=== PATIENT | female | born 1960 | race Caucasian/White ===

== ENCOUNTER 2016-11-27 10:53 | Emergency (ER) | payer OTHER, MEDICARE ==
[~2016-11-27] VITALS: Ht 165.1 cm; Wt 94.3 kg
[~2016-11-27 10:53] MED LIST: ADVAIR DISKUS 21 DSK INH; ALBUTEROL0.09 MG/A1 INH; CARBAMAZEPINE100 MG PO; CARBIDOPA/LEVOD1 TA1 PO; CLOTRIMAZOLE AN1 CRE TOP; CYMBALTA60 MG PO; ENULOSE 2020 GM/30 M PO; GLIMEPIRIDE1 MG PO; INSULIN HUMA100 U/ML; K-DUR 20MEQ TA20 MEQ PO; LEVOTHYROXIN0.112 MG PO; METFORMIN1000 MG PO; NAPROXEN500 MG PO; NEURONTIN300 MG PO; PROTONIX 40MG T40 MG PO; REGLAN10 MG PO; SINGULAIR10 MG PO; SUMATRIPTAN SUC25 MG PO; TOPIRAMATE25 MG PO; ZOFRAN 4 MG TABL4 MG PO
--- NOTE | 2016-11-27 11:10 | ED GI/GU/ABDOMINAL COMPLAINT ---
History of Present Illness General Chief Complaint: Nausea, Vomiting, Diarrhea Stated Complaint: NVD Source: patient, family, old records Exam Limitations: no limitations Vital Signs & Intake/Output Vital Signs & Intake/Output Vital Signs Date Time Temp Pulse Resp B/P Pulse O2 O2 Flow FiO2 Ox Delivery Rate 11/27 1307 98.4 68 18 111/53 96 Room Air 11/27 1306 96 11/27 1100 97.3 80 20 107/70 97 Room Air Allergies Coded Allergies: adhesive (BAND-AID BRAND RASH 01/14/16) bacitracin (RASH 01/14/16) shellfish derived (HIVES, SWELLING - SEAFOOD 01/14/16) Reconcile Medications Albuterol Sulfate (Albuterol Sulfate Hfa) 0.09 MG/Actuation DEMOND 2 PUFF INH PRN ASTHMA (Reported) 90 MCG PER PUFF Carbamazepine 100 MG CTB 1 TAB PO BID SEIZURES (Reported) Carbidopa/Levodopa (Carbidopa-Levodopa 25-100 Tab) 25 MG/100 MG TAB 1 TAB PO TID PARKINSONS (Reported) CLOTRIMAZOLE/BETAMETHASONE DIP (Clotrimazole-Betamethasone Crm) 1 CRE CRE 1 DIANA TOP BID PRN INNER THIGHS/GROIN (Reported) DULOXETINE HCL (Cymbalta) 60 MG ECC 1 CAP PO DAILY MENTAL HEALTH (Reported) FLUTICASONE/SALMETEROL (Advair 250-50 Diskus) 1 DSK DSK 1 PUFF INH BID COPD ( Reported) Gabapentin (Neurontin) 300 MG CAP 1 CAP PO TID SEIZURES (Reported) Glimepiride 1 MG TAB 1 TAB PO DAILY DIABETES (Reported) Insulin Human Regular (Unknown Strength) LOLIS (Unknown Dose) UNKNOWN (Reported ) Lactulose (Enulose 20GM/30ML) (Unknown Strength) UDC (Unknown Dose) PO UNKNOWM (Reported) Levothyroxine Sodium (Levothyroxine) 0.112 MG TAB 0.112 MG PO DAILY AC THYROID (Reported) METFORMIN HCL (Metformin) 1,000 MG TAB 1 TAB PO BID DIABETES (Reported) METOCLOPRAMIDE HCL (Reglan) 10 MG TAB 1 TAB PO 4 TIMES/DAY GI (Reported) 30 minutes before meals and bedtime Montelukast Sodium (Singulair) 10 MG TAB 1 TAB PO DAILY ALLERGIES/COPD ( Reported) Naproxen 500 MG TAB 1 TAB PO BID PAIN (Reported) Ondansetron (Zofran Odt) 4 MG TAB.RAPDIS 1 TAB SL TID PRN nausea Ondansetron (Zofran 4 MG Tablet) 4 MG TAB 1 TAB PO Q6 nausea Pantoprazole Sodium (Protonix) 40 MG TAB 1 TAB PO DAILY GI (Reported) POTASSIUM CHLORIDE (K-Dur) 20 MEQ TAB 1 TAB PO DAILY SUPPLEMENT (Reported) Sumatriptan Succinate 25 MG TAB 1 TAB PO AD PRN MIGRAINES (Reported) Topiramate (Unknown Strength) TAB (Unknown Dose) PO AD UNKNOWN (Reported) Triage Note: PT BIBA FROM HOME C/O ABDOMINAL PAIN WITH N/V/D X 2 WEEKS. WAS RX ZOFRAN BY DR ABRAHAM BUT THE PAIN HAS BEEN GETTING WORSE. NO LABS DONE BY DR ABRAHAM Triage Nurses Notes Reviewed? yes ? N Is pt currently ? No Onset: Abrupt Duration: week(s): (2), constant Timing: recent history Quality/Severity: aching, cramping Severity Numbers: 6 Location: generalized abdomen Radiation: no radiation Activities at Onset: none Prior Abdominal Problems: none No Modifying Factors: none Associated Symptoms: nausea/vomiting HPI: 56-year-old female presents to emergency room complaining of a 2 week history of generalized abdominal pain nonradiating associated multiple episodes of nausea vomiting and diarrhea for the past 2 weeks. She was recently prescribed Zofran by her primary care physician which she's been taking without relief. She denies history of similar episodes in the past no chills no cough congestion urinary symptoms. No hematemesis no black or bloody stools. No sick contacts no recent travel (MOHSEN MENDEZ,MARILOU) Past History Travel History Traveled to [place] past 21 day No Medical History Any Pertinent Medical History? see below for history Neurological: Parkinson's disease EENT: NONE Cardiovascular: hypertension, hyperlipidemia Respiratory: asthma Gastrointestinal: NONE Hepatic: NONE Renal: NONE Musculoskeletal: chronic back pain, disk herniation Psychiatric: PERSONALITY DISORDER Depression Anxiety Endocrine: diabetes, hypothyroidism Blood Disorders: NONE Cancer(s): NONE SPOUT TENDER/Reproductive: NONE History of MRSA: No History of VRE: No History of CDIFF: No Pneumonia Vaccine: 09/09/15 Influenza Vaccine: 09/09/15 Surgical History Surgical History: non-contributory Psychosocial History Who do you live with Patient/Self What is your primary language Venezuelan Tobacco Use: Never used ETOH Use: denies use Illicit Drug Use: denies illicit drug use Family History Hx Contributory? No (MARILOU CHAUHAN) Review of Systems Review of Systems Constitutional: Reports: see HPI. All Other Systems: Reviewed and Negative Comments Review of systems: See HPI, All other systems negative. Constitutional, no chills no fever, no malaise HEENT: No visual changes no sore throat no congestion Cardiovascular: No chest pain , no palpitation Skin, no rashes, no change in skin Respiratory: No dyspnea no cough no sputum GI: nausea vomiting, diarrhea, : No dysuria No hematuria, no frequency Muscle skeletal: No joint pain, no back pain, no neck pain, Neurologic: No numbness no headache Psych: No stress Heme/endocrine: No bruising no bleeding Immunology: No lymphadenopathy (MARILOU CHAUHAN) Physical Exam Physical Exam General Appearance: well developed/nourished, no apparent distress, alert, awake Gastrointestinal: normal bowel sounds, soft, non-tender Comments: Well-developed well-nourished person in no acute distress HEENT: Normal EENT exam; PERRL, EOMI. HEAD is atraumatic. moist mucous membranes. Neck: Supple,no lymphadenopathy, normal range of motion Back: Nontender, no CVA tenderness. Full range of motion Cardiovascular: Regular rate and rhythms no murmurs rubs Respiratory: No respiratory distress. Patient speaking in full complete sentences. Breath sounds clear to auscultation bilaterally: NO W/R/R Abdomen: Soft, nontender nondistended, no appreciable organomegaly. Normal bowel sounds. No rebound/guarding, No appreciable enlargement of the abdominal aorta, No ascites. Extremity: No edema, full range of motion of extremities, Neuro: Alert oriented x3, motor sensory normal. There were no obvious focal neurologic abnormalities. Skin: No appreciable rash on exposed skin, skin is warm and dry. Psych: Mood and affect is normal, memory and judgment is normal. Core Measures ACS in differential dx? No Severe Sepsis Present: No Septic Shock Present: No (MARILOU CHAUHAN) Progress Differential Diagnosis: appendicitis, biliary colic, bowel obstruction, colon cancer, diverticulitis, endometritis, esophageal varices, gastritis, hepatitis, hernia, hemorrhoids, ischemic bowel, inflamm bowel dis, kidney stone, [place]- Pietro tear, ovarian cyst, ovarian torsion, pancreatitis, PID/cervicitis, peptic ulcer, PUD/GERD, perforated viscous, SBO, UTI/pyelo Plan of Care: Orders Procedure Date/time Status FingerStick- Glucose 11/27 1220 Active Saline Lock 11/27 1119 Active LIPASE 11/27 1119 Complete COMPREHENSIVE METABOLIC PANEL 11/27 1119 Complete CBC WITHOUT DIFFERENTIAL 11/27 1119 Complete AMYLASE 11/27 1119 Complete URINALYSIS 11/27 1102 Complete Laboratory Tests 11/27/16 1230: CBC w Diff NO MAN DIFF REQ, RBC 3.82 L, MCV 94.6, MCH 32.1 H, RDW 13.6, MPV 7.3 L, Gran % 81.4 H, Lymphocytes % 12.1 L, Monocytes % 5.6, Eosinophils % 0.8, Basophils % 0.1, Absolute Granulocytes 6.2, Absolute Lymphocytes 0.9 L, Absolute Monocytes 0.4, Absolute Eosinophils 0.1, Absolute Basophils 0, PUBS MCHC 33.9 11/27/16 1142: Anion Gap 19 H, Estimated GFR 36 L, BUN/Creatinine Ratio 10.7, Glucose 260 H, Calcium 9.6, Total Bilirubin 0.7, AST 14, ALT 12, Alkaline Phosphatase 134 H, Total Protein 7.8, Albumin 4.5, Globulin 3.3, Albumin/Globulin Ratio 1.4, Amylase 35, Lipase 67, Urine Color YEL, Urine Clarity CLEAR, Urine pH 6.0, Ur Specific Union 1.020, Urine Protein 30 H, Urine Ketones 15 H, Urine Nitrite NEG, Urine Bilirubin NEG@ICTO, Urine Urobilinogen 0.2, Ur Leukocyte Esterase NEG , Ur Microscopic SEDIMENT EXAMINED, Urine RBC 1-3, Urine WBC 5-10 H, Ur Epithelial Cells OCCAS, Hyaline Casts RARE H, Granular Casts 1-3 H, Urine Hemoglobin NEG, Urine Glucose >=1000 H LABS ORDERED, PT MEDICATED WITH ZOFRAN 4MG IV, IVNS, CT ORDERED. CASE D/W DR GONG On repeat evaluation patient is tolerating by mouth I discussed with her family at all for lab results CAT scan findings. Discussed apparently thought the incidental findings on CAT scan and lab results. Need for bland diet clear liquids follow-up with her primary care physician this week advised return anytime sooner with any concerns (MOHSEN MENDEZ,MARILOU) Diagnostic Imaging: Viewed by Me: CT Scan. Discussed w/RAD: CT Scan. Radiology Impression: PATIENT: ALPA DODD PRESENT AGE : 56 PATIENT ACCOUNT NO: [id number] : 58 LOCATION: [facility] ORDERING PHYSICIAN: MARILOU MENDEZ SERVICE DATE: 11/27/16 EXAM TYPE: CAT - CT ABD & PELVIS W/O IV CONTRAS EXAMINATION: CT ABDOMEN AND PELVIS WITHOUT CONTRAST CLINICAL INFORMATION: Diverticulitis. COMPARISON: None. TECHNIQUE: Multidetector volumetric imaging was performed from the superior aspect of the liver through the pubic symphysis. Sagittal and coronal reformatted images were obtained on the technologist's workstation. DLP: 653 mGy-cm. FINDINGS: LUNG BASES: The visualized lung bases are unremarkable. LIVER, GALLBLADDER, AND BILIARY TREE: The liver is normal in size, shape, and attenuation. No focal hepatic lesion or biliary ductal dilatation is present. Status post cholecystectomy. PANCREAS: Unremarkable. SPLEEN: Unremarkable. ADRENAL GLANDS: Unremarkable. KIDNEYS AND URETERS: The kidneys are normal in size, shape, and attenuation. No hydronephrosis, hydroureter, or calculi seen. No perinephric stranding. BLADDER: Unremarkable. GASTROINTESTINAL TRACT: Scattered diverticula but no evidence for diverticulitis. Appendix not visualized. However, no inflammatory changes in the right lower quadrant. The small bowel and stomach are normal. ABDOMINAL WALL: Tiny 5 mm fat-containing umbilical hernia. LYMPH NODES: Normal. VASCULAR: Mild arterial calcification throughout. PELVIC VISCERA: Unremarkable. OSSEOUS STRUCTURES: Postop changes related to lumbar fusion at L5-S1 with bilateral pedicle screws and interconnecting rods posteriorly and interbody bone graft in the disc space. Prominent degenerative disc change at T11-T12. IMPRESSION: No acute abnormality. Scattered diverticula but no evidence for diverticulitis. Incidental findings including tiny fat-containing umbilical hernia, mild calcific atherosclerotic disease, and postop changes of the lumbosacral spine with degenerative disc changes at T11-T12. Status post cholecystectomy. DICTATED BY: SHELTON REDMOND MD DATE/TIME DICTATED:11/27/161216 DRY HOUSE TENDER: DALLIN DATE/TIME TRANSCRIBED:11/27/161216 CONFIDENTIAL, DO NOT COPY WITHOUT APPROPRIATE AUTHORIZATION. <Electronically signed in Other Vendor System> SIGNED BY: SHELTON REDMOND MD 11/27/16 1232 Initial ED EKG: none (MARILOU CHAUHAN) Departure Departure Time of Disposition: 1252 Disposition: HOME OR SELF CARE Condition: Stable Clinical Impression Primary Impression: Nausea vomiting and diarrhea Secondary Impressions: Abdominal pain Referrals: MORGAN MIKE,KARIS Koroma (PCP/Family) Additional Instructions: Follow-up with your primary care physician tomorrow for follow-up evaluation early next week. Zofran for nausea. Use [id number] Imodium as needed for diarrhea. This prescription was sent to your pharmacy return anytime sooner with any concerns bland diet, clear liquids advance as tolerated Departure Forms: Customer Survey General Discharge Information Prescriptions: Current Visit Scripts Ondansetron (Zofran Odt) 1 TAB SL TID PRN nausea #10 TAB (MARILOU CHAUHAN) PA/VIBRATION TECHNICIAN Co-Sign Statement Statement: ED Attending supervision documentation- [] I saw and evaluated the patient. I have also reviewed all the pertinent lab results and diagnostic results. I agree with the findings and the plan of care as documented in the PA's/VIBRATION TECHNICIAN's documentation. [X] I have reviewed the ED Record and agree with the PA's/VIBRATION TECHNICIAN's documentation. [] Additions or exceptions (if any) to the PAs/VIBRATION TECHNICIAN's note and plan are summarized below: [] (FARIDEH MIKE,IESHA Scott) ED Attending Observation Initial Observation Note: I have seen and personally examined ALPA DODD on 11/27/16 at 1147. I agree with the current emergency department documentation. The disposition (admission or discharge) is uncertain at this time, she needs a period of observation for the following reason(s): The ED Nurse caring for this patient has been personally informed as to what the patient is being observed for. (MARILOU CHAUHAN)
--- NOTE | 2016-11-27 12:32 | CT SCAN REPORT ---
EXAMINATION: CT ABDOMEN AND PELVIS WITHOUT CONTRAST CLINICAL INFORMATION: Diverticulitis. COMPARISON: None. TECHNIQUE: Multidetector volumetric imaging was performed from the superior aspect of the liver through the pubic symphysis. Sagittal and coronal reformatted images were obtained on the technologist's workstation. DLP: 653 mGy-cm. FINDINGS: LUNG BASES: The visualized lung bases are unremarkable. LIVER, GALLBLADDER, AND BILIARY TREE: The liver is normal in size, shape, and attenuation. No focal hepatic lesion or biliary ductal dilatation is present. Status post cholecystectomy. PANCREAS: Unremarkable. SPLEEN: Unremarkable. ADRENAL GLANDS: Unremarkable. KIDNEYS AND URETERS: The kidneys are normal in size, shape, and attenuation. No hydronephrosis, hydroureter, or calculi seen. No perinephric stranding. BLADDER: Unremarkable. GASTROINTESTINAL TRACT: Scattered diverticula but no evidence for diverticulitis. Appendix not visualized. However, no inflammatory changes in the right lower quadrant. The small bowel and stomach are normal. ABDOMINAL WALL: Tiny 5 mm fat-containing umbilical hernia. LYMPH NODES: Normal. VASCULAR: Mild arterial calcification throughout. PELVIC VISCERA: Unremarkable. OSSEOUS STRUCTURES: Postop changes related to lumbar fusion at L5-S1 with bilateral pedicle screws and interconnecting rods posteriorly and interbody bone graft in the disc space. Prominent degenerative disc change at T11-T12. IMPRESSION: No acute abnormality. Scattered diverticula but no evidence for diverticulitis. Incidental findings including tiny fat-containing umbilical hernia, mild calcific atherosclerotic disease, and postop changes of the lumbosacral spine with degenerative disc changes at T11-T12. Status post cholecystectomy.
[2016-11-27 12:37] LABS: ABSOLUTE BASOPHIL COUNT 0 /CUMM (0.0-0.2); ABSOLUTE EOSINOPHIL COUNT 0.1 /CUMM (0.0-0.7); ABSOLUTE GRANULOCYTE CT 6.2 /CUMM (1.4-6.5); ABSOLUTE LYMPH COUNT 0.9 /CUMM (1.2-3.4); ABSOLUTE MONOCYTE COUNT 0.4 /CUMM (0.10-0.60); BASOPHIL % 0.1 % (0.0-2.0); EOSINOPHIL % 0.8 % (0-5); GRANULOCYTE % 81.4 % (42.2-75.2); HEMATOCRIT 36.1 % (37-47); MEAN CORPUSCULAR HGB 32.1 PG (27.0-31.0); MEAN CORPUSCULAR HGB CONC 33.9 G/DL (33.0-37.0); MEAN CORPUSCULAR VOLUME 94.6 FL (81.0-99.0); MEAN PLATELET VOLUME 7.3 FL (7.4-10.4); PLATELET COUNT 218 /CUMM (130-400); RBC DISTRIBUTION WIDTH 13.6 % (11.5-14.5); RED BLOOD CELL CT 3.82 /CUMM (4.20-5.40); WHITE BLOOD CELL COUNT 7.6 /CUMM (4.8-10.8)
[2016-11-27] MEDS ORDERED: ZOFRAN ODT4 M1 SL (12:53)
[2016-11-27 13:07] VITALS: BP 111/53
== END 2016-11-27 13:08 ==
LOC: ERH 10:53
PROVIDERS: Physician Assistant Medical
DX: R11.2 Nausea with vomiting, unspecified (principal); R19.7 Diarrhea, unspecified; R10.84 Generalized abdominal pain
CPT/HCPCS: 74176; 81001; 96374; J2405

== ENCOUNTER 2016-11-29 18:33 | Emergency (ER) | payer OTHER, MEDICARE ==
[~2016-11-29] VITALS: Ht 182.9 cm; Wt 94.3 kg
[~2016-11-29 18:33] MED LIST changes: +ZOFRAN ODT4 M1 SL
--- NOTE | 2016-11-29 18:54 | ED GI/GU/ABDOMINAL COMPLAINT ---
History of Present Illness General Chief Complaint: Abdominal Pain/Flank Pain Stated Complaint: BIBA FOR N/V SEEN HERE THURSDAY Source: patient, old records Exam Limitations: no limitations Allergies Coded Allergies: adhesive (BAND-AID BRAND RASH 01/14/16) bacitracin (RASH 01/14/16) shellfish derived (HIVES, SWELLING - SEAFOOD 01/14/16) Reconcile Medications Albuterol Sulfate (Albuterol Sulfate Hfa) 0.09 MG/Actuation DEMOND 2 PUFF INH PRN ASTHMA (Reported) 90 MCG PER PUFF Carbamazepine 100 MG CTB 1 TAB PO BID SEIZURES (Reported) Carbidopa/Levodopa (Carbidopa-Levodopa 25-100 Tab) 25 MG/100 MG TAB 1 TAB PO TID PARKINSONS (Reported) CLOTRIMAZOLE/BETAMETHASONE DIP (Clotrimazole-Betamethasone Crm) 1 CRE CRE 1 DIANA TOP BID PRN INNER THIGHS/GROIN (Reported) DULOXETINE HCL (Cymbalta) 60 MG ECC 1 CAP PO DAILY MENTAL HEALTH (Reported) FLUTICASONE/SALMETEROL (Advair 250-50 Diskus) 1 DSK DSK 1 PUFF INH BID COPD ( Reported) Gabapentin (Neurontin) 300 MG CAP 1 CAP PO TID SEIZURES (Reported) Glimepiride 1 MG TAB 1 TAB PO DAILY DIABETES (Reported) Insulin Human Regular (Unknown Strength) LOLIS (Unknown Dose) UNKNOWN (Reported ) Lactulose (Enulose 20GM/30ML) (Unknown Strength) UDC (Unknown Dose) PO UNKNOWM (Reported) Levothyroxine Sodium (Levothyroxine) 0.112 MG TAB 0.112 MG PO DAILY AC THYROID (Reported) METFORMIN HCL (Metformin) 1,000 MG TAB 1 TAB PO BID DIABETES (Reported) METOCLOPRAMIDE HCL (Reglan) 10 MG TAB 1 TAB PO 4 TIMES/DAY GI (Reported) 30 minutes before meals and bedtime Metoclopramide HCl (Reglan) 10 MG TABLET 1 TAB PO TID PRN NAUSEA 30 minutes before meals and bedtime Montelukast Sodium (Singulair) 10 MG TAB 1 TAB PO DAILY ALLERGIES/COPD ( Reported) Naproxen 500 MG TAB 1 TAB PO BID PAIN (Reported) Ondansetron (Zofran Odt) 4 MG TAB.RAPDIS 1 TAB SL TID PRN nausea Ondansetron (Zofran 4 MG Tablet) 4 MG TAB 1 TAB PO Q6 nausea Pantoprazole Sodium (Protonix) 40 MG TAB 1 TAB PO DAILY GI (Reported) POTASSIUM CHLORIDE (K-Dur) 20 MEQ TAB 1 TAB PO DAILY SUPPLEMENT (Reported) Sumatriptan Succinate 25 MG TAB 1 TAB PO AD PRN MIGRAINES (Reported) Topiramate (Unknown Strength) TAB (Unknown Dose) PO AD UNKNOWN (Reported) Triage Note: PT BIBA FROM HOME. PT C/O N/V FOR APPROXIMATELY 3 DAYS. PT SEEN AT THIS HOSITAL APPROXIMATELY 3 DAYS AGO FOR SIMILAR COMPLAINT. PT STATED SHE HAD NO PO INTAKE FOR TWO DAYS. VANESSA CONNOLLY AT BEDSIDE FOR EVAL Triage Nurses Notes Reviewed? yes ? n Is pt currently ? No Onset: Abrupt Duration: week(s): (2), waxing and waning Timing: recent history Quality/Severity: aching, cramping Severity Numbers: 5 Location: generalized abdomen Radiation: no radiation Activities at Onset: none Prior Abdominal Problems: denies No Modifying Factors: none Associated Symptoms: denies HPI: 56-year-old female presents emergency for evaluation complaining of persistent nausea and vomiting. She was seen here 2 days ago for the same by myself had an unremarkable workup at that time. She states the diarrhea has resolved however her nausea and vomiting persist. She denies any black or bloody stools no hematemesis no fever no chills no chest pain no shortness of breath (MOHSEN MENDEZ,MARILOU) Vital Signs & Intake/Output Vital Signs & Intake/Output Vital Signs Date Time Temp Pulse Resp B/P Pulse O2 O2 Flow FiO2 Ox Delivery Rate 11/29 2046 97.9 61 20 144/63 99 Room Air 11/29 1852 97.7 70 20 139/65 97 Room Air Past History Travel History Traveled to [place] past 21 day No Medical History Any Pertinent Medical History? see below for history Neurological: Parkinson's disease EENT: NONE Cardiovascular: hypertension, hyperlipidemia Respiratory: asthma Gastrointestinal: NONE Hepatic: NONE Renal: NONE Musculoskeletal: chronic back pain, disk herniation Psychiatric: PERSONALITY DISORDER Depression Anxiety Endocrine: diabetes, hypothyroidism Blood Disorders: NONE Cancer(s): NONE MUSIC PROFESSIONALS/Reproductive: NONE History of MRSA: No History of VRE: No History of CDIFF: No Surgical History Surgical History: non-contributory Psychosocial History Who do you live with Patient/Self What is your primary language Occitan Tobacco Use: Never used ETOH Use: denies use Illicit Drug Use: denies illicit drug use Family History Hx Contributory? No (MARILOU CHAUHAN) Review of Systems Review of Systems Constitutional: Reports: see HPI. All Other Systems: Reviewed and Negative Comments Review of systems: See HPI, All other systems negative. Constitutional, no chills no fever, no malaise HEENT: No visual changes no sore throat no congestion, no ear pain Cardiovascular: No chest pain , no palpitation Skin, no rashes, no change in skin Respiratory: No dyspnea no cough no sputum GI: nausea vomiting, diarrhea, no bloating/constipation : No dysuria No hematuria, no frequency, no discharge Muscle skeletal: No joint pain, no joint swelling, no back pain Neurologic: No numbness n no headache Psych: No stress Heme/endocrine: No bruising no bleeding Immunology: No lymphadenopathy (MARILOU CHAUHAN) Physical Exam Physical Exam General Appearance: well developed/nourished, alert, awake, comfortable Gastrointestinal: normal bowel sounds, soft, non-tender Comments: Well-developed well-nourished person in no acute distress HEENT: Normal EENT exam; PERRL, EOMI, HEAD is atraumatic. moist mucous membranes. Neck: Supple, no lymphadenopathy, normal range of motion Back: Nontender, no CVA tenderness. Full range of motion Cardiovascular: Regular rate and rhythms no murmurs rubs Respiratory: Chest nontender.There were no bony deformities, no asymmetry. No respiratory distress. Patient speaking in full complete sentences. Breath sounds clear to auscultation bilaterally: NO W/R/R Abdomen: Soft, nontender nondistended, no appreciable organomegaly. Normal bowel sounds. No rebound/guarding, No appreciable enlargement of the abdominal aorta, No ascites. Extremity: No edema, full range of motion of extremities Neuro: Alert oriented x3, motor sensory normal, There were no obvious focal neurologic abnormalities. Skin: No appreciable rash on exposed skin, skin is warm and dry. Psych: Mood and affect is normal, memory and judgment is normal. Core Measures ACS in differential dx? No Severe Sepsis Present: No Septic Shock Present: No (MARILOU CHAUHAN) Progress Differential Diagnosis: AAA, appendicitis, biliary colic, bowel obstruction, colon cancer, cholecystitis, diverticulitis, endometritis, esophageal varices, gastritis, hepatitis, hernia, ischemic bowel, inflamm bowel dis, kidney stone, [place]-Pietro tear, ovarian cyst, ovarian torsion, pancreatitis, PID/cervicitis, peptic ulcer, PUD/GERD, perforated viscous, SBO, UTI/pyelo, GASTROPARESIS, DKA, HHS Initial ED EKG: none (MOHSEN MENDEZ,MARILOU) Plan of Care: Orders Procedure Date/time Status Saline Lock 11/29 1842 Active SERUM OSMOLALITY 11/29 1842 Complete LIPASE 11/29 1842 Complete LACTIC ACID 11/29 1842 Complete COMPREHENSIVE METABOLIC PANEL 11/29 1842 Complete CBC WITHOUT DIFFERENTIAL 11/29 1842 Complete AMYLASE 11/29 1842 Complete ACETONE 11/29 1842 Complete Current Medications Sig/Kelly Start time Last Medication Dose Stop Time Status Admin Sodium Chloride 1,000 ML BOLUS ONE 11/29 2014 CAN (Normal Saline 0.9%) 11/29 2113 Laboratory Tests 11/29/16 2143: Lactic Acid Cancelled 11/29/16 1937: Anion Gap 12, Estimated GFR 57 L, BUN/Creatinine Ratio 12.0, Glucose 279 H, Serum Osmolality 301 H, Lactic Acid 3.0 H, Calcium 9.2, Total Bilirubin 0.5, AST 17, ALT 10, Alkaline Phosphatase 105, Total Protein 6.6, Albumin 3.7, Globulin 2.9, Albumin/Globulin Ratio 1.3, Amylase 33, Lipase 72, CBC w Diff NO MAN DIFF REQ, RBC 3.88 L, MCV 94.4, MCH 31.8 H, RDW 13.6, MPV 7.2 L, Gran % 65.5, Lymphocytes % 23.8, Monocytes % 7.0, Eosinophils % 3.2, Basophils % 0.5, Absolute Granulocytes 5.0, Absolute Lymphocytes 1.8, Absolute Monocytes 0.5, Absolute Eosinophils 0.2, Absolute Basophils 0, PUBS MCHC 33.6, Acetone Level NEGATIVE Patient clinically appears well patient had an extensive workup including labs and CAT scan 2 days ago. IV fluids ordered case discussed with Dr. Rocha 11/29/2016 8:08:37 PM patient has had no episodes of vomiting here in the department clinically appears well this time Case and labs were discussed with Dr. Rocha who evaluated the pt. the patient tolerating by mouth challenge she's had no episodes of vomiting here in the department. Discussed that all her lab results need for close follow-up with GI as well as her primary care physician prescription for Reglan was provided. I answered all her questions she feels comfortable this plan (MARILOU CHAUHAN) Departure Departure Time of Disposition: 2023 Disposition: HOME OR SELF CARE Condition: Stable Clinical Impression Primary Impression: Nausea & vomiting Referrals: MISAEL MIKE,SONNY MORA MD,KARIS Koroma (PCP/Family) Additional Instructions: Follow-up with [facility] neurologist Dr. robledo as well as your primary care physician on Thursday. Reglan as directed for nausea. [place] diet clear liquids Departure Forms: Customer Survey General Discharge Information Prescriptions: Current Visit Scripts Metoclopramide HCl (Reglan) 1 TAB PO TID PRN NAUSEA #10 TAB 30 minutes before meals and bedtime (MARILOU CHAUHAN) PA/STRUCTURAL STEEL SHOP SUPERVISOR Co-Sign Statement Statement: ED Attending supervision documentation- [X] I saw and evaluated the patient. I have also reviewed all the pertinent lab results and diagnostic results. I agree with the findings and the plan of care as documented in the PA's/STRUCTURAL STEEL SHOP SUPERVISOR's documentation. [] I have reviewed the ED Record and agree with the PA's/STRUCTURAL STEEL SHOP SUPERVISOR's documentation. [] Additions or exceptions (if any) to the PAs/STRUCTURAL STEEL SHOP SUPERVISOR's note and plan are summarized below: [] (LORENZO MIKE,DIAZ Browning)
[2016-11-29 19:48] LABS: ABSOLUTE BASOPHIL COUNT 0 /CUMM (0.0-0.2); ABSOLUTE EOSINOPHIL COUNT 0.2 /CUMM (0.0-0.7); ABSOLUTE LYMPH COUNT 1.8 /CUMM (1.2-3.4); ABSOLUTE MONOCYTE COUNT 0.5 /CUMM (0.10-0.60); BASOPHIL % 0.5 % (0.0-2.0); EOSINOPHIL % 3.2 % (0-5); GRANULOCYTE % 65.5 % (42.2-75.2); HEMATOCRIT 36.6 % (37-47); MEAN CORPUSCULAR HGB 31.8 PG (27.0-31.0); MEAN CORPUSCULAR HGB CONC 33.6 G/DL (33.0-37.0); MEAN CORPUSCULAR VOLUME 94.4 FL (81.0-99.0); MEAN PLATELET VOLUME 7.2 FL (7.4-10.4); PLATELET COUNT 232 /CUMM (130-400); RBC DISTRIBUTION WIDTH 13.6 % (11.5-14.5); RED BLOOD CELL CT 3.88 /CUMM (4.20-5.40); WHITE BLOOD CELL COUNT 7.6 /CUMM (4.8-10.8)
[2016-11-29] MEDS ORDERED: REGLAN10 M1 PO (20:26)
[2016-11-29 20:47] VITALS: BP 144/63
== END 2016-11-29 20:54 ==
LOC: ERH 18:33
PROVIDERS: Physician Assistant Medical
DX: R11.2 Nausea with vomiting, unspecified (principal)
CPT/HCPCS: 96374; J2405

== ENCOUNTER 2017-05-20 12:29 | Emergency (ER) | payer OTHER, MEDICARE ==
[~2017-05-20] VITALS: Ht 152.4 cm; Wt 102.1 kg
[~2017-05-20 12:29] MED LIST changes: +ADVAIR 250-501 EACH INH; -ADVAIR DISKUS 21 DSK INH; -ALBUTEROL0.09 MG/A1 INH; +CARBAMAZEPINE100 M2 PO; -CARBAMAZEPINE100 MG PO; +CARBIDOPA-LEVO1 EAC7 PO; -CARBIDOPA/LEVOD1 TA1 PO; -GLIMEPIRIDE1 MG PO; +GLIMEPIRIDE2 MG PO; -K-DUR 20MEQ TA20 MEQ PO; +K-TAB ER20 MEQ PO; -LEVOTHYROXIN0.112 MG PO; +LEVOTHYROXINE112 MCG PO; +METFORMIN HCL1000 M1 PO; -METFORMIN1000 MG PO; +NEURONTIN300 M1 PO; -NEURONTIN300 MG PO; +PROAIR HFA8.5 GM INH; +REGLAN10 M1 PO; +SINGULAIR10 M1 PO; -SINGULAIR10 MG PO; +SUMATRIPTAN SUC25 M1 PO; -SUMATRIPTAN SUC25 MG PO; +TOPAMAX25 M3 PO; -TOPIRAMATE25 MG PO
[2017-05-20 12:37] VITALS: BP 120/77
--- NOTE | 2017-05-20 13:09 | ED MVC/FALL/TRAUMA COMPLAINT ---
History of Present Illness General Chief Complaint: Fall Stated Complaint: BIBA FALL +HIT HEAD,-LOC Source: patient Exam Limitations: no limitations Vital Signs & Intake/Output Vital Signs & Intake/Output Vital Signs Date Time Temp Pulse Resp B/P B/P Pulse O2 O2 Flow FiO2 Mean Ox Delivery Rate 05/20 1237 98.4 94 18 120/77 98 Room Air Allergies Coded Allergies: adhesive (BAND-AID BRAND RASH 01/14/16) bacitracin (RASH 01/14/16) shellfish derived (HIVES, SWELLING - SEAFOOD 01/14/16) Reconcile Medications Albuterol Sulfate (Proair Hfa) 90 MCG HFA.AER.AD 2 PUF INH Q4-6 PRN PRN SHORTNESS OF BREATH (Reported) Aripiprazole (Abilify) 15 MG TABLET 1 TAB PO DAILY MENTAL HEALTH (Reported) Aripiprazole 2 MG TABLET 1 TAB PO DAILY MENTAL HEALTH (Reported) Atorvastatin Calcium 20 MG TABLET 1 TAB PO DAILY CHOLESTEROL (Reported) Carbamazepine 100 MG TAB.CHEW 1 TAB PO BID SEIZURES (Reported) Carbidopa/Levodopa (Carbidopa-Levodopa 25-100 Tab) 25 MG-100 MG TABLET 1 TAB PO TID PARKINSONS (Reported) Duloxetine HCl 60 MG CAPSULE.DR 1 CAP PO DAILY MENTAL HEALTH (Reported) Empagliflozin (Jardiance) 25 MG TABLET 1 TAB PO DAILY DIABETES (Reported) Fluticasone/Salmeterol (Advair 250-50 Diskus) 250 MCG-50 MCG/DOSE BLST.W.DEV 1 PUF INH BID COPD (Reported) Gabapentin (Neurontin) 300 MG CAPSULE 1 CAP PO TID SEIZURES (Reported) Glimepiride 2 MG TABLET 1 TAB PO DAILY DIABETES (Reported) Insulin Glargine,Hum.rec.anlog (Lantus Solostar) 100 UNIT/ML (3 ML) INSULN.PEN 40 UNIT SC QPM DIABETES (Reported) Levothyroxine Sodium 112 MCG TABLET 1 TAB PO DAILY AC THYROID (Reported) Metformin HCl 1,000 MG TABLET 1 TAB PO BID DIABETES (Reported) Metoclopramide HCl (Reglan) 10 MG TABLET 1 TAB PO TID PRN NAUSEA 30 minutes before meals and bedtime Mirtazapine 15 MG TABLET 1 TAB PO QPM SLEEP (Reported) Montelukast Sodium (Singulair) 10 MG TABLET 1 TAB PO DAILY ALLERGIES ( Reported) Ondansetron (Zofran Odt) 4 MG TAB.RAPDIS 1 TAB SL TID PRN nausea Oxycodone HCl/Acetaminophen (Percocet 5-325 MG Tablet) 5 MG-325 MG TABLET 1 TAB PO BID PRN PAIN Potassium Chloride (K-Tab ER) 20 MEQ TABLET.ER 1 TAB PO DAILY SUPPLEMENT ( Reported) Solifenacin Succinate (Vesicare) 5 MG TABLET 1 TAB PO DAILY BLADDER (Reported ) Sumatriptan Succinate 25 MG TABLET 1 TAB PO DAILY PRN HEADACHE (Reported) Topiramate (Topamax) 25 MG TABLET 1 TAB PO TID MENTAL HEALTH (Reported) Triage Note: 57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 PT STATES SHE TRIPPED ON THE CURB AND FELL. +HEADSTRIKE, NOTED WITH HEMATOMA ABOVE R EYE, ABRASION TO R KNEE, BLEEDING CONTROLLED. STATES PAIN TO R ELBOW. PT A&O X3. DENIES TAKING BLOOD THINNERS. PER EMS, PTS BLOOD GLUCOSE 448. Triage Nurses Notes Reviewed? yes Onset: Abrupt Duration: constant Timing: single episode today Severity: severe Severity Numbers: 10 Method of Injury: direct blow, fall HPI: Patient is a 57-year-old female with past medical history Parkinson's who presents emergency room stating that she was in her normal state of health today patient was ambulating outside tripped on her feet where she subsequently fell forward striking the right lateral aspect of her head to the pavement as well as the right upper extremity and right knee. Patient suffered a skin abrasion to the right knee. Denies any loss of consciousness. Denies any preceding episode of lightheaded sensation or dizziness. Patient was unable to get up where she was brought in by ambulance. Denies any neck or back pain abdominal pain shortness of breath and hip pain or ankle pain. Patient is right-hand dominant. Tetanus is unknown. (MEGHA MENDEZ,MARILOU) Past History Travel History Traveled to [place] past 21 day No Medical History Any Pertinent Medical History? see below for history Neurological: Parkinson's disease EENT: NONE Cardiovascular: hypertension, hyperlipidemia Respiratory: asthma Gastrointestinal: NONE Hepatic: NONE Renal: NONE Musculoskeletal: chronic back pain, disk herniation Psychiatric: PERSONALITY DISORDER Depression Anxiety Endocrine: diabetes, hypothyroidism Blood Disorders: NONE Cancer(s): NONE STRUCTURAL ARCHITECT/Reproductive: NONE History of MRSA: No History of VRE: No History of CDIFF: No Surgical History Surgical History: non-contributory Psychosocial History Who do you live with Patient/Self What is your primary language Montserratian Tobacco Use: Never used Family History Hx Contributory? No (MARILOU GUARDADO) Review of Systems Review of Systems Constitutional: Reports: no symptoms. Eyes: Reports: no symptoms. Ears, Nose, Throat, Mouth: Reports: no symptoms. Respiratory: Reports: no symptoms. Cardiovascular: Reports: no symptoms. Gastrointestinal/Abdominal: Reports: no symptoms. Genitourinary: Reports: no symptoms. Musculoskeletal: Reports: see HPI, joint pain. Skin: Reports: see HPI. Neurological/Psychological: Reports: no symptoms. All Other Systems: Reviewed and Negative (MARILOU GUARDADO) Physical Exam Physical Exam General Appearance: no apparent distress, alert, anxious Comments: Well-developed well-nourished person in no acute distress HEENT: Normal EENT exam, extraocular motion intact, no nystagmus. Pupils equally round and reactive to light and accommodation. Nose is atraumatic. External auditory canal and Tympanic membranes clear. Pharynx normal. No swelling or edema. Neck: Supple, no lymphadenopathy, normal range of motion without pain or tenderness No central spinous tenderness Back: Nontender, no CVA tenderness. No central spinous tenderness Cardiovascular: Regular rate and rhythms no murmurs rubs or gallops, normal JVP Respiratory: Chest nontender. No respiratory distress.breath sounds clear to auscultation bilaterally Abdomen: Soft, nontender nondistended, no appreciable organomegaly. Normal bowel sounds. No ascites Extremity: No edema, no calf tenderness to palpation, normal and equal pulses. Right shoulder normal inspection nontender full active range of motion Right elbow normal inspection decreased active range of motion generalized point tenderness noted Right wrist and hands normal inspection generalized point tenderness noted decreased active range of motion noted with wrist flexion and extension Right upper extremity dermatomes intact radial pulse +2 Right knee noted superficial skin abrasion a patella decreased active range of motion generalized point tenderness noted Right hip normal inspection nontender Right ankle normal inspection nontender Neuro: Alert oriented x3, motor sensory normal, cranial nerves II through XII grossly intact. Skin: No appreciable rash on exposed skin, skin is warm and dry. Psych: Mood and affect is normal, memory and judgment is normal. Diagram Head: 1) Noted point tenderness swelling and ecchymosis Core Measures ACS in differential dx? No Severe Sepsis Present: No Septic Shock Present: No (MARILOU GUARDADO) Progress Differential Diagnosis: abd injury, C/T/L spine injury, ext injury, ICH, pelvis injury, pnemothorax, spinal cord injury Plan of Care: Orders Procedure Date/time Status Durable Medical Equipment 05/20 1508 Active Patient will receive images from where patient was point tender CT and x-rays were unremarkable for acute abnormalities. A wrist splint was placed to right wrist in which PRE/Post neurovascular was intact. Patient was strongly advised to follow-up with discharge instructions and begin using the walker for her fall prevention due to Parkinson's. Nursing staff cleaned wound of the right knee skin abrasion with clear water and bacitracin bandage was applied (MARILOU GUARDADO) Diagnostic Imaging: Viewed by Me: Radiology Read, CT Scan. Radiology Impression: no acute abnormality, no fracture Comments: PATIENT: ALPA DODD PRESENT AGE: 57 PATIENT ACCOUNT NO: [id number] : 58 LOCATION: [facility] ORDERING PHYSICIAN: MARILOU MENDEZ SERVICE DATE: 05/20/17 EXAM TYPE: CAT - CT HEAD WO IV CONTRAST EXAMINATION: CT HEAD WITHOUT CONTRAST CLINICAL INFORMATION: Right superior orbit hematoma after fall. Evaluate for intracranial hemorrhage and fracture. COMPARISON: None TECHNIQUE: Contiguous axial imaging was performed from the skull base to vertex without intravenous administration of contrast. DLP: 616 mGy-cm FINDINGS: There is atherosclerotic calcification of vertebral arteries and cavernous carotid arteries. No acute intracranial hemorrhage, extra-axial fluid collection, mass or midline shift. A small focus of decreased attenuation posterior to the left lentiform nucleus either represents an old lacunar infarction or a prominent perivascular space. The ventricles have normal size and configuration. The calvarium is intact and the visualized paranasal sinuses, nasal cavity, nasopharynx, mastoid air cells and middle ear cavities are well aerated. There is mild soft tissue swelling overlying the right superolateral orbit without evidence of orbital fracture or zygoma injury. The globes are normal and the retrobulbar fat planes are well-preserved. IMPRESSION: There is mild soft tissue swelling anterolateral to the right orbit without evidence of globe or orbital injury. There is no acute intracranial pathology. DICTATED BY: MARIANA FRANKEL MD DATE/TIME DICTATED:05/20/171415 PATIENT: ALPA DODD PRESENT AGE: 57 PATIENT ACCOUNT NO: [id number] : 58 LOCATION: [facility] ORDERING PHYSICIAN: MARILOU MENDEZ SERVICE DATE: 05/20/17 EXAM TYPE: RAD - XRY-ELBOW 3 OR MORE VIEWS, R; XRY-KNEE COMPLETE RIGHT; XRY- WRIST COMPLETE-RIGHT EXAMINATION: XR KNEE, RIGHT XR ELBOW, RIGHT XR WRIST, RIGHT CLINICAL INFORMATION: Right arm, wrist and knee pain status post fall. COMPARISON: None TECHNIQUE: Right elbow, 4 views Right knee, 4 views Right wrist, 4 views FINDINGS: Right elbow: No evidence of fracture, subluxation, joint effusion or focal soft tissue swelling. The radiocapitellar and ulnohumeral joint spaces are normal. There is enthesophyte formation of the humeral epicondyles and olecranon. Incidentally noted are two small foci of calcification subcutaneous tissues of the lower arm. Right wrist: The distal radius, ulna and radioulnar joint are normal. Carpal bones are intact. 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 No acute fracture, subluxation or focal soft tissue swelling. The metacarpals are normal. Right knee: There is enthesophyte formation of the patella. Patellofemoral and tibiofemoral joint spaces are normal. No arthritic disease, fracture, subluxation or joint effusion. IMPRESSION: No acute traumatic pathology in the right elbow, wrist or knee. DICTATED BY: MARIANA FRANKEL MD DATE/TIME DICTATED:05/20/171415 POLISHER HAND:DALLIN DATE/TIME TRANSCRIBED:05/20/171415 (MEGHA MENDEZ,MARILOU) Departure Departure Disposition: HOME OR SELF CARE Condition: Stable Clinical Impression Primary Impression: Traumatic orbital hematoma Secondary Impressions: Concussion, Contusion, Fall, Pain of right upper extremity, Right knee pain Referrals: MORGAN MIKE,KARIS Koroma (PCP/Family) Additional Instructions: As discussed begin icing the area directly 20 minutes every 2 hours Begin [id number] ibuprofen for pain and inflammation. If symptoms worsen return to emergency room Begin the prescription of Percocet for pain. Prescriptions waiting at [facility] pharmacy. If no better in one week follow-up with orthopedic DR. NUNES for further evaluation treatment. Continue using your walker for fall prevention. Begin using the wrist splint for support Departure Forms: Customer Survey General Discharge Information Prescriptions: Current Visit Scripts Oxycodone HCl/Acetaminophen (Percocet 5-325 MG Tablet) 1 TAB PO BID PRN PAIN #10 TAB (MEGHA MENDEZ,MARILOU) PA/ROTARY SLICING MACHINE OPERATOR Co-Sign Statement Statement: ED Attending supervision documentation- I saw and evaluated the patient. I have also reviewed all the pertinent lab results and diagnostic results. I agree with the findings and the plan of care as documented in the PA's/ROTARY SLICING MACHINE OPERATOR's documentation. x I have reviewed the ED Record and agree with the PA's/ROTARY SLICING MACHINE OPERATOR's documentation. [] Additions or exceptions (if any) to the PAs/ROTARY SLICING MACHINE OPERATOR's note and plan are summarized below: [] (LEDY MIKE,JEFFERY)
--- NOTE | 2017-05-20 14:23 | RADIOLOGY REPORT ---
EXAMINATION: XR KNEE, RIGHT XR ELBOW, RIGHT XR WRIST, RIGHT CLINICAL INFORMATION: Right arm, wrist and knee pain status post fall. COMPARISON: None TECHNIQUE: Right elbow, 4 views Right knee, 4 views Right wrist, 4 views FINDINGS: Right elbow: No evidence of fracture, subluxation, joint effusion or focal soft tissue swelling. The radiocapitellar and ulnohumeral joint spaces are normal. There is enthesophyte formation of the humeral epicondyles and olecranon. Incidentally noted are two small foci of calcification subcutaneous tissues of the lower arm. Right wrist: The distal radius, ulna and radioulnar joint are normal. Carpal bones are intact. 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 No acute fracture, subluxation or focal soft tissue swelling. The metacarpals are normal. Right knee: There is enthesophyte formation of the patella. Patellofemoral and tibiofemoral joint spaces are normal. No arthritic disease, fracture, subluxation or joint effusion. IMPRESSION: No acute traumatic pathology in the right elbow, wrist or knee.
--- NOTE | 2017-05-20 14:28 | CT SCAN REPORT ---
EXAMINATION: CT HEAD WITHOUT CONTRAST CLINICAL INFORMATION: Right superior orbit hematoma after fall. Evaluate for intracranial hemorrhage and fracture. COMPARISON: None TECHNIQUE: Contiguous axial imaging was performed from the skull base to vertex without intravenous administration of contrast. DLP: 616 mGy-cm FINDINGS: There is atherosclerotic calcification of vertebral arteries and cavernous carotid arteries. No acute intracranial hemorrhage, extra-axial fluid collection, mass or midline shift. A small focus of decreased attenuation posterior to the left lentiform nucleus either represents an old lacunar infarction or a prominent perivascular space. The ventricles have normal size and configuration. The calvarium is intact and the visualized paranasal sinuses, nasal cavity, nasopharynx, mastoid air cells and middle ear cavities are well aerated. There is mild soft tissue swelling overlying the right superolateral orbit without evidence of orbital fracture or zygoma injury. The globes are normal and the retrobulbar fat planes are well-preserved. IMPRESSION: There is mild soft tissue swelling anterolateral to the right orbit without evidence of globe or orbital injury. There is no acute intracranial pathology.
[2017-05-20] MEDS ORDERED: LANTUS SOL100 UNIT/1 SC (14:37)
[2017-05-20] MEDS ORDERED: ABILIFY15 M1 PO (14:40)
[2017-05-20] MEDS ORDERED: JARDIANCE25 M1 PO (14:40)
[2017-05-20] MEDS ORDERED: DULOXETINE HCL60 MG PO (14:41)
[2017-05-20] MEDS ORDERED: ARIPIPRAZOLE2 MG PO (14:41)
[2017-05-20] MEDS ORDERED: MIRTAZAPINE15 M2 PO (14:41)
[2017-05-20] MEDS ORDERED: ATORVASTATIN CA20 M1 PO (14:42)
[2017-05-20] MEDS ORDERED: VESICARE5 M1 PO (14:43)
[2017-05-20] MEDS ORDERED: PERCOCET 5-3251 EACH PO (15:04)
== END 2017-05-20 15:39 ==
LOC: ERH 12:29
DX: S05.11XA Contusion of eyeball and orbital tissues, right eye, initial encounter (principal); S06.0X0A Concussion without loss of consciousness, initial encounter; M79.601 Pain in right arm; M25.561 Pain in right knee; W18.09XA Striking against other object with subsequent fall, initial encounter; Y92.9 Unspecified place or not applicable; Y93.9 Activity, unspecified
CPT/HCPCS: 73080-RT; 73110-RT; 73562-RT; 90471; 90714